=== PATIENT | male | born 1955 | race Caucasian/White ===

== ENCOUNTER → 2023-04-05 07:42 | Outpatient (BNVA) | payer MEDICARE, OTHER, SELFPAY | PROVIDERS: Family Provider Family Medicine; Visit Provider Internal Medicine | DX: E11.9 Type 2 diabetes mellitus without complications (principal); E78.2 Mixed hyperlipidemia; R06.02 Shortness of breath; R01.1 Cardiac murmur, unspecified; Z79.84 Long term (current) use of oral hypoglycemic drugs | CPT/HCPCS: 99204 ==

== ENCOUNTER 2023-06-04 08:19 | Outpatient (CLI) | payer MEDICARE, OTHER, SELFPAY ==
--- NOTE | 2023-06-04 09:15 | USCV_ITS ---
Tip Hardin Age: 67 Gender: M : 1955 Exam Date: 06/04/2023 08:33 Ordering Phys: Tran Forte MD Technologist: ADAIR [place] [facility] [place]: MURMUR/SHORTNESS OF BREATH BP: 132 / 72 HR: 86 Rhythm: Sinus Technical Quality: Adequate MEASUREMENTS (Male / Female) Normal Values 2D ECHO LV Diastolic Diameter PLAX 5.3 cm 4.2 - 5.9 / 3.9 - 5.3 cm IVS Diastolic Thickness 1.0 cm 0.6 - 1.0 / 0.6 - 0.9 cm IVS Systolic Thickness 2.5 cm LVPW Diastolic Thickness 1.4 cm 0.6 - 1.0 / 0.6 - 0.9 cm LVPW Systolic Thickness 2.5 cm LVOT Diameter 2.0 cm LV Ejection Fraction 2D Teich 65.7 % LV Ejection Fraction MOD 2C 63.1 % LV Ejection Fraction 2C AL 64.9 % LA Diameter 3.4 cm RA Systolic Volume 4C AL 31.0 ml RA Systolic Volume 4C MOD 29.1 ml LA Sys Volume AL 27.4 cm cubed Aorta at Sinotubular Diameter 2.1 cm IVC Diameter 2.2 cm M-MODE LA Ao Ratio MM 1.1 AV Cusp Separation MM 1.0 cm DOPPLER AV Peak Velocity 170.0 cm/s LVOT Peak Velocity 107.0 cm/s AV Area Cont Eq vti 2.3 cm squared AV Area Cont Eq pk 2.0 cm squared MV Peak Velocity 124.0 cm/s MV Area PHT 4.4 cm squared Mitral E to A Ratio 0.9 TR Peak Velocity 127.0 cm/s TR Peak Gradient 6.5 mmHg TR Mean Velocity 106.0 cm/s TR Mean Gradient 4.7 mmHg TR Velocity Time Integral 33.8 cm TV Peak E Velocity 46.0 cm/s Right Atrial Pressure 3.0 mmHg Pulmonary Artery Systolic Pressu 9.5 mmHg PV Peak Velocity 173.0 cm/s RV Ejection Time 0.3 s FINDINGS Left Ventricle Left ventricle is normal size. LV systolic function is normal with EF of 60 to 65%. No regional wall motion abnormalities are seen. Grade 1 diastolic dysfunction Right Ventricle Normal in size and function Right Atrium Normal in size Left Atrium Normal in size Mitral Valve Mild mitral annular calcification seen. Mild mitral regurgitation. Aortic Valve Grossly normal. No significant stenosis or regurgitation. Tricuspid Valve Trace tricuspid regurgitation. Insufficient TR jet to calculate RVSP Pulmonic Valve Not well visualized Pericardium Normal Aorta Normal in size IVC Appears to be normal CONCLUSIONS LV systolic function is normal with EF of 60-65% Grade 1 diastolic dysfunction Mild mitral regurgitation Trace tricuspid regurgitation No comparison studies are available. Mark Sue MD (Electronically Signed) Final Date: 04 June 2023 11:56 S
== END 2023-06-04 08:20 | disposition home or self-care (01) ==
LOC: RAD 08:20
PROVIDERS: PCP Family Medicine; Visit Provider Internal Medicine
DX: I34.0 Nonrheumatic mitral (valve) insufficiency (principal); R01.1 Cardiac murmur, unspecified
CPT/HCPCS: 93306

== ENCOUNTER → 2023-06-13 12:28 | Outpatient (BNVA) | payer MEDICARE, OTHER, SELFPAY | PROVIDERS: PCP Family Medicine; Referring Provider Internal Medicine; Visit Provider Internal Medicine | DX: R07.9 Chest pain, unspecified (principal); E78.2 Mixed hyperlipidemia; R01.1 Cardiac murmur, unspecified | CPT/HCPCS: 93005; 99204 ==

== ENCOUNTER → 2023-07-01 09:23 | Outpatient (BNVA) | payer MEDICARE, OTHER, SELFPAY | PROVIDERS: PCP Family Medicine; Referring Provider Internal Medicine; Visit Provider Internal Medicine | DX: E11.9 Type 2 diabetes mellitus without complications (principal); E78.2 Mixed hyperlipidemia; R06.02 Shortness of breath; R01.1 Cardiac murmur, unspecified; Z79.899 Other long term (current) drug therapy | CPT/HCPCS: 80053; 80061; 82043; 83036 ==

== ENCOUNTER → 2023-07-08 07:32 | Outpatient (BNVA) | payer MEDICARE, OTHER, SELFPAY | PROVIDERS: PCP Family Medicine; Visit Provider Internal Medicine | DX: E78.2 Mixed hyperlipidemia; R06.02 Shortness of breath; R01.1 Cardiac murmur, unspecified; E11.22 Type 2 diabetes mellitus with diabetic chronic kidney disease; N18.2 Chronic kidney disease, stage 2 (mild) | CPT/HCPCS: 99214 ==

== ENCOUNTER 2023-09-25 07:59 | Outpatient (CLI) | payer MEDICARE, OTHER, SELFPAY ==
[2023-09-25 09:16] LABS: Alanine Aminotransferase 10 U/L (0-41); Albumin Level 3.7 g/dL (3.5-5.2); Alkaline Phosphatase 103 U/L (40-130); Anion Gap 15.9 (5-19); Aspartate Amino Transferase 10 U/L (0-40); Blood Urea Nitrogen 21 mg/dL (8-23); Calcium 9.4 mg/dL (8.5-10.5); Carbon Dioxide 22 mmol/L (22-29); Chloride 104 mmol/L (98-107); Chol HDL Ratio 4.11 mg/dL (1.0-5.00); Cholesterol 144 mg/dL (0-200); Globulin 3.8 g/dL (1.3-4.6); Glomerular Filtration Rate 54.7 mL/min (90-130); Glucose 124 mg/dL (65-115); HDL Cholesterol 35 mg/dL (60-100); LDL Cholesterol Calculated 76 mg/dL (50-129); LDL HDL Ratio 2.17 RATIO (0.00-3.22); Osmolality Calculated 288 mOsm/kg (285-295); Potassium 4.9 mmol/L (3.5-5.1); Sodium 137 mmol/L (136-145); Total Bilirubin 0.9 mg/dL (0.15-1.2); Total Protein 7.5 g/dL (6.6-8.7); Triglycerides 165 mg/dL (0-150)
[2023-09-25 09:22] LABS: Estmated Average Glucose 137; Hemoglobin A1C 6.4 % (4.0-6.0)
[2023-09-25 09:22] LABS: Creatinine Urine, Random 61 mg/dL (39-259); Microalbumin Random Urine 5 ug/dL (0-20)
[2023-09-25 09:29] LABS: Microalbum Creatinine Ratio Ur 82 mg/dL (0-20)
== END 2023-09-25 08:00 | disposition home or self-care (01) ==
PROVIDERS: PCP Family Medicine; Visit Provider Internal Medicine
DX: E11.9 Type 2 diabetes mellitus without complications (principal); E78.2 Mixed hyperlipidemia; N18.2 Chronic kidney disease, stage 2 (mild); E10.22 Type 1 diabetes mellitus with diabetic chronic kidney disease
CPT/HCPCS: 36415; 80053; 80061; 82044; 83036

== ENCOUNTER → 2023-10-02 07:54 | Outpatient (BNVA) | payer MEDICARE, OTHER, SELFPAY | PROVIDERS: PCP Family Medicine; Visit Provider Internal Medicine | DX: N18.2 Chronic kidney disease, stage 2 (mild); E78.2 Mixed hyperlipidemia; R06.02 Shortness of breath; R01.1 Cardiac murmur, unspecified; E11.22 Type 2 diabetes mellitus with diabetic chronic kidney disease | CPT/HCPCS: 99214 ==

== ENCOUNTER 2024-02-06 10:20 | Outpatient (CLI) | payer MEDICARE, OTHER, SELFPAY ==
[2024-02-06 11:07] LABS: Estmated Average Glucose 148; Hemoglobin A1C 6.8 % (4.0-6.0)
[2024-02-06 11:11] LABS: Creatinine Urine, Random 100 mg/dL (39-259); Microalbumin Random Urine 16 ug/dL (0-20)
[2024-02-06 11:11] LABS: Alanine Aminotransferase 8 U/L (0-41); Albumin Level 3.7 g/dL (3.5-5.2); Alkaline Phosphatase 117 U/L (40-130); Anion Gap 18.2 (5-19); Aspartate Amino Transferase 11 U/L (0-40); Blood Urea Nitrogen 22 mg/dL (8-23); Calcium 9.5 mg/dL (8.5-10.5); Carbon Dioxide 23 mmol/L (22-29); Chloride 103 mmol/L (98-107); Chol HDL Ratio 3.39 mg/dL (1.0-5.00); Cholesterol 129 mg/dL (0-200); Globulin 3.7 g/dL (1.3-4.6); Glomerular Filtration Rate 66.2 mL/min (90-130); Glucose 127 mg/dL (65-115); HDL Cholesterol 38 mg/dL (60-100); LDL Cholesterol Calculated 61 mg/dL (50-129); LDL HDL Ratio 1.61 RATIO (0.00-3.22); Osmolality Calculated 295 mOsm/kg (285-295); Potassium 4.2 mmol/L (3.5-5.1); Sodium 140 mmol/L (136-145); Total Bilirubin 0.7 mg/dL (0.15-1.2); Total Protein 7.4 g/dL (6.6-8.7); Triglycerides 148 mg/dL (0-150)
[2024-02-06 11:12] LABS: Microalbum Creatinine Ratio Ur 160 mg/dL (0-20)
== END 2024-02-06 10:21 | disposition home or self-care (01) ==
LOC: LAB 10:23
PROVIDERS: PCP Family Medicine; Visit Provider Internal Medicine
DX: N18.2 Chronic kidney disease, stage 2 (mild) (principal); E10.22 Type 1 diabetes mellitus with diabetic chronic kidney disease; E78.2 Mixed hyperlipidemia
CPT/HCPCS: 36415; 80053; 80061; 82044; 83036

== ENCOUNTER → 2024-02-11 14:50 | Outpatient (BNVA) | payer MEDICARE, OTHER, SELFPAY | PROVIDERS: PCP Family Medicine; Visit Provider Internal Medicine | DX: E10.22 Type 1 diabetes mellitus with diabetic chronic kidney disease (principal); N18.2 Chronic kidney disease, stage 2 (mild); E78.2 Mixed hyperlipidemia; R06.02 Shortness of breath; R01.1 Cardiac murmur, unspecified | CPT/HCPCS: 99214 ==

== ENCOUNTER 2024-05-19 09:04 | Outpatient (CLI) | payer MEDICARE, OTHER, SELFPAY ==
[2024-05-19 10:01] LABS: Estmated Average Glucose 157; Hemoglobin A1C 7.1 % (4.0-6.0)
[2024-05-19 10:12] LABS: Alanine Aminotransferase 11 U/L (0-41); Albumin Level 3.9 g/dL (3.5-5.2); Alkaline Phosphatase 118 U/L (40-130); Anion Gap 15.5 (5-19); Aspartate Amino Transferase 12 U/L (0-40); Blood Urea Nitrogen 21 mg/dL (8-23); Calcium 9.7 mg/dL (8.5-10.5); Carbon Dioxide 23 mmol/L (22-29); Chloride 101 mmol/L (98-107); Cholesterol 133 mg/dL (0-200); Globulin 4.1 g/dL (1.3-4.6); Glomerular Filtration Rate 59.9 mL/min (90-130); Glucose 147 mg/dL (65-115); HDL Cholesterol 35 mg/dL (60-100); LDL Cholesterol Calculated 69 mg/dL (50-129); LDL HDL Ratio 1.97 RATIO (0.00-3.22); Osmolality Calculated 286 mOsm/kg (285-295); Potassium 4.5 mmol/L (3.5-5.1); Sodium 135 mmol/L (136-145); Total Bilirubin 0.9 mg/dL (0.15-1.2); Triglycerides 145 mg/dL (0-150)
== END 2024-05-19 09:05 | disposition home or self-care (01) ==
LOC: LAB 09:06
PROVIDERS: PCP Family Medicine; Visit Provider Internal Medicine
DX: E11.9 Type 2 diabetes mellitus without complications (principal); E78.2 Mixed hyperlipidemia; N18.2 Chronic kidney disease, stage 2 (mild)
CPT/HCPCS: 80053; 80061; 83036

== ENCOUNTER 2024-06-11 08:30 | Outpatient (CLI) | payer MEDICARE, OTHER, SELFPAY ==
[2024-06-11 09:19] LABS: Estmated Average Glucose 151; Hemoglobin A1C 6.9 % (4.0-6.0)
[2024-06-11 09:28] LABS: Alanine Aminotransferase 13 U/L (0-41); Alkaline Phosphatase 99 U/L (40-130); Anion Gap 17.6 (5-19); Aspartate Amino Transferase 12 U/L (0-40); Blood Urea Nitrogen 24 mg/dL (8-23); Calcium 9.7 mg/dL (8.5-10.5); Carbon Dioxide 22 mmol/L (22-29); Chloride 104 mmol/L (98-107); Chol HDL Ratio 5.66 mg/dL (1.0-5.00); Cholesterol 198 mg/dL (0-200); Globulin 3.9 g/dL (1.3-4.6); Glomerular Filtration Rate 59.9 mL/min (90-130); Glucose 136 mg/dL (65-115); HDL Cholesterol 35 mg/dL (60-100); LDL Cholesterol Calculated 124 mg/dL (50-129); LDL HDL Ratio 3.54 RATIO (0.00-3.22); Osmolality Calculated 294 mOsm/kg (285-295); Potassium 4.6 mmol/L (3.5-5.1); Sodium 139 mmol/L (136-145); Total Bilirubin 0.7 mg/dL (0.15-1.2); Total Protein 7.9 g/dL (6.6-8.7); Triglycerides 194 mg/dL (0-150)
[2024-06-11 09:35] LABS: Creatinine Urine, Random 180 mg/dL (39-259); Microalbumin Random Urine 31 ug/dL (0-20)
[2024-06-11 09:37] LABS: Microalbum Creatinine Ratio Ur 172 mg/dL (0-20)
== END 2024-06-11 08:31 | disposition home or self-care (01) ==
LOC: LAB 08:31
PROVIDERS: PCP Family Medicine; Visit Provider Internal Medicine
DX: R06.00 Dyspnea, unspecified (principal); E78.2 Mixed hyperlipidemia; R01.1 Cardiac murmur, unspecified; F17.220 Nicotine dependence, chewing tobacco, uncomplicated
CPT/HCPCS: 36415; 80053; 80061; 82044; 83036; 99214

== ENCOUNTER → 2024-06-16 09:15 | Outpatient (BNVA) | payer MEDICARE, OTHER, SELFPAY | PROVIDERS: PCP Family Medicine; Visit Provider Internal Medicine | DX: E11.9 Type 2 diabetes mellitus without complications (principal); E78.2 Mixed hyperlipidemia; R01.1 Cardiac murmur, unspecified; R06.02 Shortness of breath | CPT/HCPCS: 99214 ==

== ENCOUNTER 2024-06-22 10:27 | Outpatient (CLI) | payer MEDICARE, OTHER, SELFPAY ==
--- NOTE | 2024-06-22 10:30 | USCV_ITS ---
Tip Hardin Age: 68 Gender: M : 1955 Exam Date: 06/22/2024 10:48 Ordering Phys: Mark Sue M.D ([email or web address]) Technologist: KAMILLE [place] [facility] [place]: [place] pain, endarterectomy on the right side Risk Factors: Previous Vascular Surgery: Right Brachial BP: / Left Brachial BP: / Right Left Velocity (cm/s) Spectral Plaque Velocity (cm/s) Spectral Plaque Syst/Diast Broadening Syst/Diast Broadening 92.20/ 12.50 Prox CCA 98.40 / 17.30 87.70/ 16.70 Mid CCA 68.10 / 17.20 81.90/ 11.60 Distal CCA 58.90 / 9.70 60.00/ 11.50 Prox ICA 158.80/ 31.30 107.70/25.30 Mid ICA 126.20/ 19.90 109.40/27.60 Distal ICA 75.50 / 15.80 149.10 ECA 60.10 0.70 ICA/CCA 2.70 Antegrade Vertebral Antegrade 62.00/ 12.80 cm/s 21.70/ 3.80 cm/s Tri Subclavian Tri 93.90 109.7 0 FINDINGS Comparison: none available. Diffuse bilateral scattered calcified plaque and intimal thickening throughout the common carotid arteries and extending through the bifurcation. Antegrade vertebral arteries. CONCLUSIONS Left ICA stenosis 50-69%. Right ICA stenosis < 50%. Diffuse carotid plaque, greatest on the left. Dr. Marleen Chen DO (Electronically Signed) Final Date: 22 June 2024 13:21 S
== END 2024-06-22 10:28 | disposition home or self-care (01) ==
LOC: RAD 10:32
PROVIDERS: PCP Family Medicine; Visit Provider Internal Medicine
DX: R42 Dizziness and giddiness (principal); M54.2 Cervicalgia; I65.23 Occlusion and stenosis of bilateral carotid arteries
CPT/HCPCS: 93880

== ENCOUNTER 2024-08-13 12:23 | Outpatient (CLI) | payer MEDICARE, OTHER, SELFPAY ==
--- NOTE | 2024-08-13 12:30 | CTR_ITS ---
PROCEDURE INFORMATION: Exam: CTA Neck With Contrast Exam date and time: 08/13/2024 1:17 PM Age: 68 years old Clinical indication: Condition or disease; Occlusion or stenosis of cerebral arteries; Additional info: Bilat carotid stenosis TECHNIQUE: Imaging protocol: Computed tomographic angiography of the neck with contrast. Exam focused on the cervical segments of the vasculature. 3D rendering (Not supervised by radiologist): MIP and/or 3D reconstructed images were created by the technologist. Radiation optimization: All CT scans at this facility use at least one of these dose optimization techniques: automated exposure control; mA and/or kV adjustment per patient size (includes targeted exams where dose is matched to clinical indication); or iterative reconstruction. Contrast material: OMNI 350; Contrast volume: 100 ml; Contrast route: INTRAVENOUS (IV); COMPARISON: No relevant prior studies available. RADIATION DOSE METRICS: Total DLP (mGy-cm): 329.25 FINDINGS: Limitations: Suboptimal evaluation secondary to patient motion. Right common carotid artery: No stenosis. No dissection or occlusion. Right internal carotid artery: Moderate calcified and noncalcified plaque is seen involving the right carotid bulb and proximal right cervical internal carotid artery. No significant stenosis seen by NASCET criteria. No dissection or occlusion. Right external carotid artery: No occlusion or stenosis of the origin. Left common carotid artery: No stenosis. No dissection or occlusion. Left internal carotid artery: Extensive calcified and noncalcified plaque is seen involving the left carotid bulb and proximal left cervical internal carotid artery with a minimal focal narrowing 1.2 mm and a distal reference diameter 4.2 mm corresponding to a 71% stenosis by NASCET criteria. Left external carotid artery: Severe narrowing of the origin of the left external carotid artery. Right vertebral artery: No cervical vertebral artery stenosis. No dissection or occlusion. Left vertebral artery: Severe narrowing of the origin of the left vertebral artery secondary to atherosclerotic plaque. Remainder of the left vertebral artery is normal in course and caliber. Soft tissues: Heterogeneous thyroid gland suggestion of underlying right thyroid nodule measuring up to 1.5 cm. Thyroid gland would be better assessed with thyroid ultrasound if clinically warranted. Asymmetric appearance of the fossa of Rosenmuller with relative effacement of the right side. Underlying mucosal lesion cannot be excluded. Recommend correlation with direct visualization. Bones/joints: No acute bony abnormality. CT/CT angio neck 25018 IMPRESSION: 1. Extensive calcified and noncalcified plaque is seen involving the left carotid bulb and proximal left cervical internal carotid artery with a minimal focal narrowing 1.2 mm and a distal reference diameter 4.2 mm corresponding to a 71% stenosis by NASCET criteria. 2. Severe narrowing of the origin of the left vertebral artery secondary to atherosclerotic plaque. Remainder of the left vertebral artery is normal in course and caliber. 3. Asymmetric appearance of the fossa of Rosenmuller with relative effacement of the right side. Underlying mucosal lesion cannot be excluded. Recommend correlation with direct visualization. COMMENTS: Consistent with the [employer]'s Incidental Findings Committee white paper (J Am Dede Radiol 2015): In patients aged 35 years and older with an incidental thyroid nodule equal to or greater than 1.[address], MRI or extrathyroidal US, further evaluation with dedicated thyroid US is recommended for patients with normal life expectancy and without comorbidities. For smaller nodules without suspicious features, no further evaluation or follow up is recommended. REFERENCES: NASCET CRITERIA. The degree of stenosis in the cervical segment of the internal carotid artery is based on NASCET criteria. Normal is no stenosis. Mild is less than 50% stenosis. Moderate is 50-69% stenosis. Severe is 70% to 99% stenosis. Total occlusion is no detectable patent lumen.
[2024-08-13] MEDS: iohexol 350 mg/mL 500 mL Btl (per mL) IV (13:33)
[2024-08-13 14:39] LABS: Blood Urea Nitrogen 31 mg/dL (8-23); Glomerular Filtration Rate 54.6 mL/min (90-130)
== END 2024-08-13 12:24 | disposition home or self-care (01) ==
LOC: RAD 12:24
PROVIDERS: PCP Family Medicine; Visit Provider Internal Medicine
DX: I65.23 Occlusion and stenosis of bilateral carotid arteries (principal); I67.2 Cerebral atherosclerosis
CPT/HCPCS: 70498; 82565; 84520

== ENCOUNTER 2024-09-17 08:12 | Outpatient (CLI) | payer MEDICARE, OTHER, SELFPAY ==
[2024-09-17 09:13] LABS: Estmated Average Glucose 154; Hemoglobin A1C 7.0 % (4.0-6.0)
[2024-09-17 09:14] LABS: Creatinine Urine, Random 103 mg/dL (39-259)
[2024-09-17 09:16] LABS: Microalbum Creatinine Ratio Ur 87 mg/dL (0-20)
[2024-09-17 09:17] LABS: Alanine Aminotransferase 10 U/L (0-41); Albumin Level 3.8 g/dL (3.5-5.2); Alkaline Phosphatase 118 U/L (40-130); Anion Gap 17.7 (5-19); Aspartate Amino Transferase 11 U/L (0-40); Blood Urea Nitrogen 29 mg/dL (8-23); Calcium 9.5 mg/dL (8.5-10.5); Carbon Dioxide 24 mmol/L (22-29); Chloride 101 mmol/L (98-107); Cholesterol 147 mg/dL (0-200); Globulin 4.1 g/dL (1.3-4.6); Glucose 135 mg/dL (65-115); HDL Cholesterol 35 mg/dL (60-100); Osmolality Calculated 294 mOsm/kg (285-295); Potassium 4.7 mmol/L (3.5-5.1); Sodium 138 mmol/L (136-145); Total Protein 7.9 g/dL (6.6-8.7); Triglycerides 183 mg/dL (0-150)
== END 2024-09-17 08:13 | disposition home or self-care (01) ==
LOC: LAB 08:13
PROVIDERS: PCP Family Medicine; Visit Provider Internal Medicine
DX: E11.9 Type 2 diabetes mellitus without complications (principal); E78.2 Mixed hyperlipidemia; R01.1 Cardiac murmur, unspecified; R06.02 Shortness of breath
CPT/HCPCS: 36415; 80053; 80061; 82044; 83036

== ENCOUNTER → 2024-09-23 09:21 | Outpatient (BNVA) | payer MEDICARE, OTHER, SELFPAY | PROVIDERS: PCP Family Medicine; Visit Provider Internal Medicine | DX: E10.22 Type 1 diabetes mellitus with diabetic chronic kidney disease (principal); N18.2 Chronic kidney disease, stage 2 (mild); E78.2 Mixed hyperlipidemia | CPT/HCPCS: 99214 ==